=== PATIENT | female | born 1990 | race Hispanic/Latino ===

== ENCOUNTER 2024-09-12 12:14 | Emergency (ER) | payer BC, MEDICAID ==
[~2024-09-12] VITALS: Ht 175.3 cm; Wt 136.1 kg
[2024-09-12 13:17] LABS: BASOPHILS # (AUTO) 0.02 K/uL (0.00-0.20); BASOPHILS % (AUTO) 0.3 % (0.0-5.0); EOSINOPHILS # (AUTO) 0.16 K/uL (0.00-0.70); EOSINOPHILS % (AUTO) 2.5 % (0.0-8.0); HEMATOCRIT 34.9 % (36-48); IMMATURE GRANULOCYTE ABSOLUTE 0.01 K/uL (0-1); LYMPHOCYTES # (AUTO) 0.9 K/uL (1.0-4.8); LYMPHOCYTES % (AUTO) 14.2 % (21.0-51.0); MEAN CORPUSCULAR HEMOGLOBIN 19.1 pg (27.0-33.0); MEAN CORPUSCULAR HGB CONC 28.7 g/dL (32.0-36.0); MEAN CORPUSCULAR VOLUME 66.6 fL (79-99); MONOCYTES # (AUTO) 0.4 K/uL (0.1-1.0); MONOCYTES % (AUTO) 5.9 % (3.0-13.0); NEUTROPHILS # (AUTO) 4.8 K/uL (1.8-7.7); NEUTROPHILS % (AUTO) 76.9 % (40.0-77.0); PLATELET COUNT (AUTO) 181 K/uL (130-400); RED BLOOD CELL COUNT(AUTO) 5.24 MIL/uL (4.00-5.50); RED CELL DISTRIBUTION WIDTH 17.5 % (11.0-15.5); WHITE BLOOD COUNT (AUTO) 6.3 K/uL (4.8-10.8)
[2024-09-12] MEDS: cefTRIAXone 1G VIAL IVPB ONE (13:27)
[2024-09-12] MEDS: ketOROlac 15MG/ML VIAL (15MG/ML) IV ONE (13:27)
[2024-09-12] MEDS: LACTATED RINGERS 1000ML 1,000 ML IV ONE (13:27)
[2024-09-12 13:37] LABS: CREATININE 0.6 mg/dL (0.5-1.0); POTASSIUM 3.9 mmol/L (3.5-5.1)
[2024-09-12 13:46] LABS: APPEARANCE,URINE TURBID (CLEAR); BILIRUBIN,URINE 1 mg/dL (NEGATIVE); COLOR,URINE DARK-BROWN (YELLOW); GLUCOSE, URINE (UA) NEGATIVE (NEGATIVE); KETONES,URINE NEGATIVE (NEGATIVE); LEUKOCYTE ESTERASE ,URINE 250 Leu/uL (NEGATIVE); NITRATE,URINE 2+ (NEGATIVE); OCCULT BLOOD,URINE LARGE (NEGATIVE); PROTEIN,URINE 100 mg/dL (NEGATIVE); UROBILINOGEN,URINE 6 mg/dL (0.2-1.0)
[2024-09-12 13:47] LABS: ADD UA MICROSCOPIC YES
[2024-09-12 13:58] LABS: MUCUS,URINE MOD LPF (None Seen); NON-SQUAMOUS EPITHELIAL CELL 2 /HPF (0-2); WBC CLUMP RARE /HPF (0-1); WBC,URINE TNTC /HPF (0-1)
[2024-09-12 14:03] LABS: BACTERIA,URINE Rare /HPF (None Seen)
[2024-09-12 14:04] LABS: SQUAMOUS EPITHELIAL CELL,UR Many /HPF (0-2)
[2024-09-12] MEDS ORDERED: CEFP200T14 PO (14:52)
[2024-09-12] MEDS ORDERED: MELO-108 PO (14:52)
--- NOTE | 2024-09-12 14:53 | ERN ---
General Chief Complaint: Blood in Urine: Stated Complaint: BLOOD IN URINE Time Seen by MD: 12:21 History of Present Illness Initial Comments 34-year-old female presents for dysuria urgency and hematuria. She reports three or four days of dysuria urgency and hematuria. This morning she developed some chills and reports that she out those discomfort in her lower back. No vomiting. No vaginal bleeding or discharge. No abdominal pain. Denies . She reports history of gastric sleeve procedure otherwise no surgical history. Allergies: Coded Allergies: No Known Drug Allergies (Unverified Allergy, Unknown, 12/30/16) Home Meds No Active Prescriptions or Reported Meds Past Medical History Past Medical History: Anemia Past Surgical History: Other Surgical History Other: GASTRIC SLEEVE ROS Dictation CONSTITUTIONAL: No chills, no fever, no weakness, no diaphoresis, no malaise. HEAD/FACE: No signs of trauma. EENT: No eye pain, no blurred vision, no tearing, no double vision, no ear pain, no ear discharge, no nose pain, no nasal congestion, no throat pain, no throat swelling, no mouth pain. RESPIRATORY: No cough, no orthopnea, no SOB, no stridor, no wheezing. CARDIOVASCULAR: No chest pain, no edema, no palpitations, no syncope. GASTROINTESTINAL/ABDOMINAL: No abdominal pain, no constipation, no diarrhea, no nausea, no vomiting. GENITOURINARY: Dysuria MUSCULOSKELETAL: No back pain, no gout, no joint pain, no joint swelling, no muscle pain, no muscle stiffness, no neck pain. INTEGUMENTARY: No change in color, no change in hair/nails, no dryness, no lesion, no lumps, no rash. NEUROLOGICAL/PSYCH: No anxiety, not depressed, no emotional problem, no headache, no numbness, no pre-existing deficit, no history of seizures, no tremors, no weakness. HEMATOLOGIC/LYMPHATIC: Not anemic, no history of blood clots, no apparent bleeding, no bruising, glands not swollen. All Systems Negative, Except as Noted. Physical Exam Physical Exam Dictation VITAL SIGNS: Reviewed. GENERAL APPEARANCE: Alert, oriented x3, no acute distress, obese. HEAD AND FACE: Non-traumatic. EYES: PERRL, pink conjunctivas, eyelid no trauma, anterior chamber clear. EARS: Pinnas intact and no signs of trauma or erythema. Ear canals clear and no discharge. TMs no erythema. NOSE: No discharge, no bleeding. OROPHARYNX: Mouth normal, teeth no caries, tongue pink. Pharynx clear, no erythema. Tonsils no exudates, no abscesses noted. Mucous membrane moist. NECK: Supple, non-tender, no thyromegaly, no masses, no JVD, no bruits. BREAST: Deferred. CHEST: No tenderness, no crepitus, no paradoxical movement, no retractions. LUNGS: Clear, well-ventilated, symmetric, no rales, no wheezing, no rhonchi, no stridor, good breath sounds bilaterally. HEART: Regular rate, regular rhythm, no murmur, no gallops. VASCULAR: No peripheral edema. ABDOMEN: Soft, positive bowel sounds, nondistended, no guarding, nontender, no rebound, no masses no hepatomegaly, no splenomegaly, no Haney's sign, no hernias. RECTAL: Deferred. GENITAL: Deferred. NEUROLOGICAL: Normal speech, gross motor function intact, gross sensory function intact. MUSCULOSKELETAL: Neck nontender, full range of motion, back nontender, full range of motion. EXTREMITIES: Nontender, full range of motion. SKIN: Color pink, dry, no turgor, no rash, no lacerations, no abrasions, no contusions. LYMPHATICS: Deferred. Results Laboratory and Microbiology Lab and Micro Result Laboratory Tests Test 09/12/24 12:19 09/12/24 13:08 Urine Color DARK-BROWN (YELLOW) Urine Appearance TURBID (CLEAR) Urine pH 6.0 (5.0-8.0) Urine Specific [place] 1.034 (1.001-1.031) Urine Protein 100 mg/dL (NEGATIVE) H Urine Glucose (UA) NEGATIVE mg/dL (NEGATIVE) Urine Ketones NEGATIVE mg/dL (NEGATIVE) Urine Occult Blood LARGE (NEGATIVE) H Urine Nitrate 2+ (NEGATIVE) H Urine Bilirubin 1 mg/dL (NEGATIVE) H Urine Urobilinogen 6 mg/dL (0.2-1.0) H Urine Leukocyte Esterase 250 Huang/uL (NEGATIVE) H Urine RBC 11-25 /HPF (0-1) H Urine WBC TNTC /HPF (0-1) H Urine WBC Clumps (Auto) RARE /HPF (0-1) Urine Squamous Epithelial Cells Many /HPF (0-2) H Urine Non-Squamous Epithelial Cells 2 /HPF (0-2) Urine Bacteria Rare /HPF (None Seen) White Blood Count 6.3 K/uL (4.8-10.8) Red Blood Count 5.24 MIL/uL (4.00-5.50) Hemoglobin 10.0 g/dL (12.0-16.0) L Hematocrit 34.9 % (36-48) L Mean Corpuscular Volume 66.6 fL (79-99) L Mean Corpuscular Hemoglobin 19.1 pg (27.0-33.0) L Mean Corpuscular Hemoglobin Concent 28.7 g/dL (32.0-36.0) L Red Cell Distribution Width 17.5 % (11.0-15.5) H Platelet Count 181 K/uL (130-400) Mean Platelet Volume 10.0 fL (7.5-10.5) Immature Granulocyte % (Auto) 0.2 % (0-1) Neutrophils (%) (Auto) 76.9 % (40.0-77.0) Lymphocytes (%) (Auto) 14.2 % (21.0-51.0) L Monocytes (%) (Auto) 5.9 % (3.0-13.0) Eosinophils (%) (Auto) 2.5 % (0.0-8.0) Basophils (%) (Auto) 0.3 % (0.0-5.0) Neutrophils # (Auto) 4.8 K/uL (1.8-7.7) Lymphocytes # (Auto) 0.9 K/uL (1.0-4.8) L Monocytes # (Auto) 0.4 K/uL (0.1-1.0) Eosinophils # (Auto) 0.16 K/uL (0.00-0.70) Basophils # (Auto) 0.02 K/uL (0.00-0.20) Absolute Immature Granulocyte (auto 0.01 K/uL (0-1) Nucleated Red Blood Cells 0.0 % (0.0-0.19) Red Blood Cell Morphology See comments Sodium Level 140 mmol/L (136-145) Potassium Level 3.9 mmol/L (3.5-5.1) Chloride Level 109 mmol/L (101-111) Carbon Dioxide Level 25 mmol/L (21-32) Blood Urea Nitrogen 21 mg/dL (7-18) H Creatinine 0.6 mg/dL (0.5-1.0) Glomerular Filtration Rate Calc 119 mL/min (>90) Random Glucose 93 mg/dL (70-105) Total Calcium 8.3 mg/dL (8.5-10.1) L Human Chorionic Gonadotropin, Quant 0 mIU/mL (0-5) MDM CC: Urgency and dysuria Historian: Patient Comorbidities: Obesity Limitations by social determinants of health: None Differential diagnosis: My UTI, pyelonephritis, sepsis, other. Vital signs: Stable, remained stable in the ER Labs (independently interpreted by me): no leukocytosis. Microcytic anemia hemoglobin of 10. No shift or bands. Chemistry panel is unremarkable. HCG is negative. Urinalysis consistent with a UTI. Symptoms most consistent with a urinary tract infection. No suspicion for pyelonephritis or sepsis. Patient received IV fluids, IV Toradol, and IV Rocephin in the ER Plan: Discharge with meloxicam for pain and discomfort and cefpodoxime antibi otic. Recommend PCP follow up. Patient agrees with the plan. ED Course Orders Procedure Category Date Status Time Lactated Ringers PHA 09/12/24 Complete 1000ml (Lactated 13:00 Cbc With Differential LAB 09/12/24 Complete 12:59 Basic Metabolic Panel LAB 09/12/24 Complete 12:59 Hcg,Quantitative LAB 09/12/24 Complete 12:59 Urinalysis Profile LAB 09/12/24 Complete 12:59 Ketorolac PHA 09/12/24 Complete Tromethamine 15mg/Ml 13:00 Ceftriaxone 1g Vial PHA 09/12/24 Complete (Rocephine 1g Inj) 13:00 Culture Urine ROZ 09/12/24 In Process 13:47 Current Medications Medications (Trade) Dose Ordered Sig/Viviana Route PRN Reason Start Time Stop Time Status Last Admin Dose Admin Ceftriaxone Sodium (ROCEphine 1G INJ) 1 gm ONCE ONCE IVPB 09/12/24 13:00 09/12/24 13:01 DC 09/12/24 13:27 Ketorolac Tromethamine (toRADol) 15 mg ONCE ONCE IV 09/12/24 13:00 09/12/24 13:01 DC 09/12/24 13:27 Lactated Ringer's 1,000 ml @ 0 mls/hr ONCE ONCE IV 09/12/24 13:00 09/12/24 13:01 DC 09/12/24 13:27 Vital Signs Date Time Temp Pulse Resp B/P (MAP) Pulse Ox O2 Delivery O2 Flow Rate FiO2 09/12/24 13:59 97.9 79 16 137/96 99 0 09/12/24 13:40 89 18 98 Room Air* 0 21 DX & DISP Disposition: Discharge Departure Impression: Primary Impression: UTI (urinary tract infection) Condition: Stable Scripts Cefpodoxime Proxetil (Cefpodoxime Proxetil) 200 Mg Tablet 200 MG PO BID for 5 Days, #10 TAB Prov: MYRANDA HUMPHREYS DO 09/12/24 Meloxicam (Meloxicam) 15 Mg Tablet 15 MG PO DAILY PRN for PAIN for 10 Days, #10 TAB Prov: MYRANDA HUMPHREYS DO 09/12/24 Additional Instructions: You have a urinary tract infection based on your presentation and urinalysis. Your blood work is unremarkable. You received IV antibiotics (Rocephin) and pain control here in the ER. I have prescribed cefpodoxime, which is an antibiotic. Please take as prescribed. I have prescribed meloxicam, which is an anti-inflammatory pain medication. Please take as prescribed for pain. You can also try [id number] Tylenol as needed for pain. Please return to the emergency department as needed. Please follow up with the primary doctor in 48 hours for re-evaluation. Referrals: GAURI DOVER MD (PCP) MYRANDA HUMPHREYS DO Sep 12, 2024 14:53
[2024-09-12] MEDS: morPHINE 2 MG SYG IVP ONE (15:05)
[2024-09-12 15:30] VITALS: BP 135/81; PULSE 79; RESP 16; TEMP 97.9; O2SAT 99
== END 2024-09-12 15:47 | disposition home or self-care (01) ==
LOC: EDH 12:14
DX: N39.0 Urinary tract infection, site not specified (principal); E66.9 Obesity, unspecified; R10.2 Pelvic and perineal pain; Z98.84 Bariatric surgery status
CPT/HCPCS: 99284; 96374; 96375; 80048; 84702; 85025; 87086 ×2; 87186; 81001; 36415; J1885; J7120; J2270; J0696

== ENCOUNTER 2024-09-14 19:21 | Emergency (ER) | payer BC, MEDICAID ==
[~2024-09-14] VITALS: Ht 175.3 cm; Wt 136.1 kg
[~2024-09-14 19:21] MED LIST: CEFP200T14 PO; MELO-108 PO
[2024-09-14 19:54] LABS: ADD UA MICROSCOPIC YES; APPEARANCE,URINE TURBID (CLEAR); BILIRUBIN,URINE NEGATIVE (NEGATIVE); COLOR,URINE LIGHT-ORANGE (YELLOW); GLUCOSE, URINE (UA) NEGATIVE (NEGATIVE); KETONES,URINE 5 mg/dL (NEGATIVE); LEUKOCYTE ESTERASE ,URINE 500 Leu/uL (NEGATIVE); NITRATE,URINE NEGATIVE (NEGATIVE); OCCULT BLOOD,URINE LARGE (NEGATIVE); PROTEIN,URINE 200 mg/dL (NEGATIVE); UROBILINOGEN,URINE 3 mg/dL (0.2-1.0)
[2024-09-14 19:57] LABS: BACTERIA,URINE RARE /HPF (None Seen); MUCUS,URINE FEW LPF (None Seen); RBC,URINE TNTC /HPF (0-1); SQUAMOUS EPITHELIAL CELL,UR MANY /HPF (0-2); WBC,URINE TNTC /HPF (0-1)
[2024-09-14] MEDS: ketOROlac 60 MG VIAL (30MG/ML) IM ONE (19:58)
--- NOTE | 2024-09-14 20:25 | ERN ---
ED Note History of Present Illness Stated Complaint: PAINFUL URINATION, BLOOD IN URINE Chief Complaint: Painful Urination Time Seen by MD: 19:24 Time Seen by Midlevel: 19:24 Dictation: The patient is a 34-year-old female with significant past medical history who reports to the emergency department with complaints of burning urination and hematuria , low back pain onset Sunday. Patient reports she was seen here and was diagnosed with a UTI but reports that discomfort continues. Denies any fevers. Reports diarrhea no vomiting. No abdominal pain. Allergies: Coded Allergies: No Known Drug Allergies (Unverified Allergy, Unknown, 12/30/16) Home Meds Active Scripts Cefpodoxime Proxetil (Cefpodoxime Proxetil) 200 Mg Tablet, 200 MG PO BID for 5 Days, #10 TAB Prov:MYRANDA HUMPHREYS DO 09/12/24 Meloxicam (Meloxicam) 15 Mg Tablet, 15 MG PO DAILY PRN for PAIN for 10 Days, #10 TAB Prov:MYRANDA HUMPHREYS DO 09/12/24 Past Medical History Past Medical History: Anemia, UTI Surgical History: Other Surgical History Other: GASTRIC SLEEVE RN Note Reviewed/Agreed w/PFSH: Yes Review of System Dictation Constitutional: Negative for fever,chills, and weight loss Eyes: Negative for injury, pain,redness, and discharge ENT: Negative for injury,pain or swelling Cardiovascular: Negative for chest pain, palpitations, and edema Respiratory: Negative for shortness of breath, cough, and wheezing, Abdomen/GI: Negative for abdominal pain, nausea, vomiting, diarrhea, and constipation Back: Negative for injury and pain : Positive for burning urination MS/Extremity: Negative for injury and deformity Skin: Negative for rash, and discoloration Neuro: Negative for headache, weakness, numbness, tingling, and seizure Psych: Negative for suicide ideation, homicidal ideation, and hallucinations Initial Vital Sign VS Vital Signs Date Time Temp Pulse Resp B/P (MAP) Pulse Ox O2 Delivery O2 Flow Rate FiO2 09/14/24 19:22 98.2 81 16 144/90 98 Room Air 09/14/24 19:38 0 21 Physical Exam Dictation Vital Signs reviewed General Appearance: Alert, oriented x 3, no acute distress, well developed, nourished. Head and Face: non-traumatic. Eyes: PERRL, pink conjunctivas, eyelid no trauma, anterior chamber with arcus senilis. Ears: Pinnas intact and no signs of trauma or erythema ear canals clear and no discharge TM no erythema Nose: No discharge, no bleeding. Oropharynx: Mouth normal, tongue pink. pharynx clear,no erythema, tonsils no exudates, no abscesses noted, mucous membrane moist Neck: Supple, non-tender, no thyromegaly, no masses, no JVD, no bruits Breast:Deferred Chest:No tenderness, no crepitus, no paradoxical movement, no retractions Lungs:Clear, well-ventilated, symmetric, no rales, no wheezing, no rhonchi, no stridor, good breath sounds bilaterally Heart: Regular rate, regular rhythm, no murmur, no gallops Vascular: no peripheral edema, Abdomen: Soft, positive bowel sounds, nondistended, no guarding, nontender, no rebound, no masses no hepatomegaly, no splenomegaly, no Haney's sign, no hernias. Rectal: Deferred Genital:scant bleeding in vaginal canal, no wounds externally or internally Neurological: Normal speech, motor function intact, sensory function intact Musculoskeletal: Neck nontender, full range of motion, back nontender, full range of motion, no CVA tenderness Extremities: nontender, full range of motion Skin: Color pink, dry, no turgor, no rash, no lacerations, no abrasions, no contusions. Lymphatic: Deferred Results (Laboratory/Radiology) Laboratory/Radiology Laboratory Tests Test 09/14/24 19:35 Urine Color LIGHT-ORANGE (YELLOW) Urine Appearance TURBID (CLEAR) Urine pH 6.0 (5.0-8.0) Urine Specific [place] 1.040 (1.001-1.031) Urine Protein 200 mg/dL (NEGATIVE) H Urine Glucose (UA) NEGATIVE mg/dL (NEGATIVE) Urine Ketones 5 mg/dL (NEGATIVE) H Urine Occult Blood LARGE (NEGATIVE) H Urine Nitrate NEGATIVE (NEGATIVE) Urine Bilirubin NEGATIVE mg/dL (NEGATIVE) Urine Urobilinogen 3 mg/dL (0.2-1.0) H Urine Leukocyte Esterase 500 Huang/uL (NEGATIVE) H Urine RBC TNTC /HPF (0-1) H Urine WBC TNTC /HPF (0-1) H Urine Squamous Epithelial Cells MANY /HPF (0-2) Urine Bacteria RARE /HPF (None Seen) Urine HCG, Qualitative NEGATIVE (NEGATIVE) REASON: vaginal bleeding ORDERING PHYSICIAN: RAMIN DODD PROCEDURE: PELVCOMP - US PELVIC NON-OB COMP ULTRASOUND OF THE PELVIS ULTRASOUND ABD VASCULAR LIMITED INDICATION: Painful urination and vaginal bleeding COMPARISONS: None TECHNIQUE: Transabdominal real-time sonographic images were acquired earlier, and subsequently made available for review. FINDINGS: Examination is limited by patient body habitus. The uterus measures 8.0 x 4.0 x 6.0 cm. The uterus is normal in echotexture and contour. The endometrial thickness measures 2.8 mm. The right ovary measures 2.0 x 2.0 x 2.0 cm. The right ovary is normal in size, shape and echogenicity. No right adnexal masses demonstrated. Color Doppler flow is normal throughout the right ovary. Spectral Doppler analysis demonstrates a normal waveform pattern. The left ovary was not well-demonstrated.. No free pelvic fluid demonstrated. IMPRESSION: No acute pelvic abnormality noted. Labs Reviewed?: Yes ED Course ED Course Orders Procedure Category Date Status Time Urinalysis Profile LAB 09/14/24 Complete 19:36 Ketorolac 60mg/2ml PHA 09/14/24 Complete (Toradol 60mg/2ml) 20:00 Pelvic Exam Set Up CPOE 09/14/24 Transmitted (Er) 19:43 Us Pelvic Non-Ob Comp US 09/14/24 Resulted 20:54 ,Urine Test LAB 09/14/24 Complete 20:54 Current Medications Medications (Trade) Dose Ordered Sig/Viviana Route PRN Reason Start Time Stop Time Status Last Admin Dose Admin Ketorolac Tromethamine (toRADol 60MG/ 2ML) 60 mg ONCE ONCE IM 09/14/24 20:00 09/14/24 20:01 DC 09/14/24 19:58 Vital Signs Date Time Temp Pulse Resp B/P (MAP) Pulse Ox O2 Delivery O2 Flow Rate FiO2 09/14/24 22:26 97.5 67 16 143/88 99 Room Air* 0 21 09/14/24 19:38 97.5 86 16 135/79 98 Room Air* 0 21 09/14/24 19:22 98.2 81 16 144/90 98 Room Air Medical Decision Making MDM The patient is a 34-year-old female with significant past medical history who reports to the emergency department with complaints of burning urination and hematuria , low back pain onset Sunday. Patient reports she was seen here and was diagnosed with a UTI but reports that discomfort continues. Denies any fevers. Reports diarrhea no vomiting. No abdominal pain. Urinalysis positive for leukocyte esterase, negative on pelvic exam patient had scant vaginal bleeding with no clots or wounds. Bleeding is probably vaginal. Pelvic ultrasound was unremarkable.I review patient previous labs and urine culture. Labs were unremarkable. Patient instructed to continue with antibiotic treatment . On physical exam patient is in no acute distress. abdomen is nontender to palpations, no cva tenderness, stable vital signs. Patient instructed to follow up with PCP which she says she has an appointment next week. Differential diagnosis: UTI, herpes, Need for hospitalization: Patient does not meet criteria for hospitalization. There are no social concerns with this patient. DX & DISP Disposition: Discharge Departure Impression: Primary Impression: UTI (urinary tract infection) Additional Impression: Dysuria Condition: Stable Additional Instructions: Your urinalysis still shows a uti. You need to finish the rest of your antibiotics. Your ultrasound was normal. Please follow up with your PCP in 1-2 d ays. FOLLOW-UP WITH PRIMARY CARE PROVIDER IN 1 TO 2 DAYS. TAKE MEDICATIONS DIRECTED HERE IN THE EMERGENCY ROOM. OKAY TO CONTINUE HOME MEDICATIONS UNLESS OTHERWISE DISCUSSED DURING YOUR VISIT IN THE EMERGENCY ROOM TODAY. RETURN TO YOUR NEAREST EMERGENCY ROOM IF SYMPTOMS WORSEN OR IF THERE IS NO IMPROVEMENT. CALL 911 IF YOU NEED IMMEDIATE ASSISTANCE. TAKE TYLENOL [id number] NEEDED AND IF NO CONTRAINDICATIONS ARE PRESENT. INCREASE ORAL HYDRATION. A WOUND CULTURE OR URINE CULTURE WAS ORDERED HERE IN THE EMERGENCY ROOM DEPARTMENT PLEASE FOLLOW-UP WITH PRIMARY CARE PROVIDER AND ADVISE THEM TO GET REPEAT PORTS FROM OUR FACILITY. IF YOU HAD ANY ALMA WRAP/SPLINTS THAT WERE APPLIED HERE, PLEASE DO NOT REMOVE THEM UNTIL YOU SEE YOUR PRIMARY CARE OR SPECIALTY. Referrals: GAURI DOVER MD (PCP) Time of Disposition: 22:15 I have reviewed the case, and I agree with, Diagnosis and Plan RAMIN DODD Sep 14, 2024 20:25 MYRANDA HUMPHREYS DO Sep 15, 2024 03:41
--- NOTE | 2024-09-14 22:00 | HMCIMG ---
ULTRASOUND OF THE PELVIS ULTRASOUND ABD VASCULAR LIMITED INDICATION: Painful urination and vaginal bleeding COMPARISONS: None TECHNIQUE: Transabdominal real-time sonographic images were acquired earlier, and subsequently made available for review. FINDINGS: Examination is limited by patient body habitus. The uterus measures 8.0 x 4.0 x 6.0 cm. The uterus is normal in echotexture and contour. The endometrial thickness measures 2.8 mm. The right ovary measures 2.0 x 2.0 x 2.0 cm. The right ovary is normal in size, shape and echogenicity. No right adnexal masses demonstrated. Color Doppler flow is normal throughout the right ovary. Spectral Doppler analysis demonstrates a normal waveform pattern. The left ovary was not well-demonstrated.. No free pelvic fluid demonstrated. IMPRESSION: No acute pelvic abnormality noted.
[2024-09-14 22:26] VITALS: BP 143/88; PULSE 67; RESP 16; TEMP 97.5; O2SAT 99
== END 2024-09-14 22:38 | disposition home or self-care (01) ==
LOC: EDH 19:21
DX: N39.0 Urinary tract infection, site not specified (principal); Z87.440 Personal history of urinary (tract) infections; Z79.899 Other long term (current) drug therapy; Z98.890 Other specified postprocedural states
CPT/HCPCS: 99284; 76856; 81001; 81025; 96372; J1885